=== PATIENT | female | born 1990 | race Caucasian/White ===

== ENCOUNTER 2019-07-21 11:37 | Emergency (ER) | payer MEDICAID ==
[~2019-07-21] VITALS: Ht 154.9 cm; Wt 89.8 kg
[2019-07-21 11:58] VITALS: BP 110/58
--- NOTE | 2019-07-21 12:03 | NUR ---
Vital Signs Stable. [email or web address]. Awaiting for bed availability.
--- NOTE | 2019-07-21 12:14 | NUR ---
PT TO ER BED 8
--- NOTE | 2019-07-21 12:18 | NUR ---
29 Y/O FEMALE REFERRED FROM DR MARIO DUE TO DEHYDRATION. DR MARIO TOLD PT SHE NEED IV FLUIDS AND LABS DRAWN. STATES 5 HEADACHE AT THIS TIME. 10 WKS PER PT. STATES LMP 05/06/19. DENIES FEVER, N/V/D. NO ABD CRAMPING, BLEEDING, NOR DISCHARGE. RR EVEN AND UNLABORED. SITTING UPRIGHT CALM AND PLEASANT. X 1 SIDE RAIL RAISED. BED LOCKED AND IN LOW POSITION. VSS MEDHX: DENIES ALLERGIES: NKA
[2019-07-21] MEDS ORDERED: NACL 0.9% 1,000 ML IV ONE (12:45)
[2019-07-21 13:04] LABS: BASOPHILS # (AUTO) 0.1 K/uL (0.00-0.22); BASOPHILS % (AUTO) 0.6 % (0.0-2.0); EOSINOPHILS # (AUTO) 0.1 K/uL (0-0.4); EOSINOPHILS % (AUTO) 0.9 % (0.0-4.0); HEMATOCRIT 36.3 % (36-48); LYMPHOCYTES # (AUTO) 2.2 K/uL (2.5-16.5); LYMPHOCYTES % (AUTO) 17.9 % (20.5-51.1); MEAN CORPUSCULAR HEMOGLOBIN 29 pg (27-31); MEAN CORPUSCULAR HGB CONC 33 g/dL (33-37); MEAN CORPUSCULAR VOLUME 87.6 fL (80-94); MONOCYTES # (AUTO) 0.8 K/uL (0.8-1.0); MONOCYTES % (AUTO) 6.5 % (1.7-9.3); NEUTROPHILS # (AUTO) 9.1 K/uL (1.8-7.7); NEUTROPHILS % (AUTO) 74.1 % (42.2-75.2); PLATELET COUNT (AUTO) 288 K/uL (140-450); RED BLOOD CELL COUNT(AUTO) 4.14 MIL/uL (4.20-5.40); RED CELL DISTRIBUTION WIDTH 13.6 % (11.6-13.7); WHITE BLOOD COUNT (AUTO) 12.3 K/uL (4.8-10.8)
[2019-07-21 13:21] LABS: ALBUMIN 3.1 g/dL (3.4-5.0); ANION GAP 15.8 (8-16); CARBON DIOXIDE 23.9 mmol/L (21-32); CREATININE 0.5 mg/dL (0.6-1.3); POTASSIUM 3.7 mmol/L (3.5-5.1); TOTAL BILIRUBIN 0.1 mg/dL (0.0-1.0)
[2019-07-21 13:21] LABS: BILIRUBIN,URINE NEGATIVE (NEGATIVE); BLOOD, URINE NEGATIVE (NEGATIVE); COLOR,URINE YELLOW (YELLOW); LEUKOCYTE ESTERASE ,URINE 1+ (NEGATIVE); NITRITE, URINE NEGATIVE (NEGATIVE); UGLUCOSE NEGATIVE (NEGATIVE)
[2019-07-21 13:32] LABS: APPEARANCE,URINE SLIGHTLY HAZY (CLEAR); RBC,URINE 0-5 /HPF (0-5); WBC,URINE 0-5 /HPF (0-5)
--- NOTE | 2019-07-21 13:47 | NUR ---
denies headache at this time. pt sitting upright awake and alert. x 1 side rail raised, bed locked and in low position. vss. will continue to monitor
--- NOTE | 2019-07-21 14:35 | NUR ---
PT AMBULATED TO RESTROOM WITH STEADY GAIT
[2019-07-21 15:06] VITALS: BP 110/58
--- NOTE | 2019-07-21 15:08 | NUR ---
Patient discharged with v/s stable. Written and verbal after care instructions given and explained. Patient verbalized understanding. Ambulatory with steady gait. All questions addressed prior to discharge. Advised to follow up with PMD.
== END 2019-07-21 15:08 | disposition home or self-care (01) ==
LOC: MED 11:37
DX: O99.281 Endocrine, nutritional and metabolic diseases complicating pregnancy, first trimester (principal); O21.8 Other vomiting complicating pregnancy; E86.0 Dehydration; Z3A.10 10 weeks gestation of pregnancy
CPT/HCPCS: 36415; 80053; 81001; 81025; 85025; 87086; 96360; 99283; J7030

== ENCOUNTER 2019-12-08 06:38 | Inpatient (IN) | payer MEDICAID, SELFPAY ==
[~2019-12-08] VITALS: Ht 154.9 cm; Wt 97.1 kg
[2019-12-08 08:18] VITALS: BP 124/75
--- NOTE | 2019-12-08 08:24 | NUR ---
PATIENT HAS BEEN SCREENED AND CATEGORIZED LOW NUTRITION RISK. PATIENT WILL BE SEEN WITHIN 7 DAYS OF ADMISSION. 12/14/[address]
[2019-12-08] MEDS ORDERED: LACTATED RINGERS 1,000 ML IV SCH (08:30)
[2019-12-08] MEDS ORDERED: MORPHINE SULFATE 4 MG/ML SYR IVP PRN (08:30)
[2019-12-08] MEDS ORDERED: BETAMETH ACET/BETAMETH NA PH 30 MG/5 ML VIAL IM SCH (08:30)
[2019-12-08] MEDS ORDERED: ONDANSETRON 4 MG/2 ML VIAL IVP PRN (08:30)
[2019-12-08 09:14] LABS: BILIRUBIN,URINE NEGATIVE (NEGATIVE); BLOOD, URINE NEGATIVE (NEGATIVE); COLOR,URINE YELLOW (YELLOW); LEUKOCYTE ESTERASE ,URINE 1+ (NEGATIVE); NITRITE, URINE NEGATIVE (NEGATIVE); PH,URINE 5.5 (5.0-9.0); UGLUCOSE NEGATIVE (NEGATIVE)
[2019-12-08 09:24] LABS: BASOPHILS % (AUTO) 0.3 % (0.0-2.0); EOSINOPHILS # (AUTO) 0.1 K/uL (0-0.4); EOSINOPHILS % (AUTO) 1.2 % (0.0-4.0); HEMATOCRIT 34.5 % (36-48); HEMOGLOBIN 11.2 g/dL (12.0-16.0); LYMPHOCYTES # (AUTO) 1.6 K/uL (2.5-16.5); LYMPHOCYTES % (AUTO) 15.2 % (20.5-51.1); MEAN CORPUSCULAR HEMOGLOBIN 29 pg (27-31); MEAN CORPUSCULAR HGB CONC 32 g/dL (33-37); MEAN CORPUSCULAR VOLUME 89.7 fL (80-94); MONOCYTES # (AUTO) 0.8 K/uL (0.8-1.0); MONOCYTES % (AUTO) 7.2 % (1.7-9.3); NEUTROPHILS # (AUTO) 8.3 K/uL (1.8-7.7); NEUTROPHILS % (AUTO) 76.1 % (42.2-75.2); PLATELET COUNT (AUTO) 251 K/uL (140-450); RED BLOOD CELL COUNT(AUTO) 3.85 MIL/uL (4.20-5.40); RED CELL DISTRIBUTION WIDTH 14.5 % (11.6-13.7); WHITE BLOOD COUNT (AUTO) 10.9 K/uL (4.8-10.8)
[2019-12-08 09:33] LABS: ALBUMIN 2.6 g/dL (3.4-5.0); ANION GAP 15.1 (8-16); CARBON DIOXIDE 23.8 mmol/L (21-32); CREATININE 0.6 mg/dL (0.6-1.3); POTASSIUM 3.9 mmol/L (3.5-5.1); TOTAL BILIRUBIN 0.1 mg/dL (0.0-1.0)
[2019-12-08 10:16] LABS: APPEARANCE,URINE HAZY (CLEAR)
[2019-12-08 10:17] LABS: RBC,URINE 0-5 /HPF (0-5)
[2019-12-08 10:18] LABS: WBC,URINE 0-5 /HPF (0-5)
[2019-12-08] MEDS ORDERED: cefTRIAXone 1,000 MG VIAL ONE (13:29)
[2019-12-09] MEDS ORDERED: PNV91TAB10 PO (13:49)
== END 2019-12-09 01:40 | disposition home or self-care (01) | DRG 563 ==
LOC: MLD 06:38 → OBSVTOIN 09:51 → MFCC 10:02
PROVIDERS: ADMIT Obstetrics & Gynecology; ATTEND Obstetrics & Gynecology
DX: O60.03 Preterm labor without delivery, third trimester (principal); Z20.828 Contact with and (suspected) exposure to other viral communicable diseases; Z3A.32 32 weeks gestation of pregnancy
CPT/HCPCS: G0378 ×3; 36415; 76817; 80053; 81001; 85025; 86886; 86900; 86901; 87086; J0696; J0702; J7060; J7120; Q0092; U0003-CS

== ENCOUNTER 2019-12-09 12:57 | Observation (INO) | payer MEDICAID, SELFPAY ==
[~2019-12-09] VITALS: Ht 154.9 cm; Wt 97.1 kg
[2019-12-09] MEDS ORDERED: BETAMETH ACET/BETAMETH NA PH 30 MG/5 ML VIAL IM SCH (13:10)
[2019-12-09] MEDS ORDERED: PNV91TAB10 PO (13:49)
== END 2019-12-09 14:30 | disposition home or self-care (01) ==
LOC: MLD 12:57
PROVIDERS: ADMIT Obstetrics & Gynecology; ATTEND Obstetrics & Gynecology
DX: O62.9 Abnormality of forces of labor, unspecified (principal); Z3A.32 32 weeks gestation of pregnancy
CPT/HCPCS: 81000; 96372; G0378; J0702

== ENCOUNTER 2020-01-11 15:50 | Observation (INO) | payer MEDICAID, SELFPAY ==
[~2020-01-11] VITALS: Ht 154.9 cm; Wt 101.6 kg
[~2020-01-11 15:50] MED LIST: PNV91TAB10 PO
[2020-01-11] MEDS ORDERED: OSC500 PO (16:44)
== END 2020-01-11 19:05 | disposition home or self-care (01) ==
LOC: MLD 15:50
PROVIDERS: ADMIT Obstetrics & Gynecology; ATTEND Obstetrics & Gynecology
DX: O62.9 Abnormality of forces of labor, unspecified (principal); O26.893 Other specified pregnancy related conditions, third trimester; R82.998 Other abnormal findings in urine; R60.0 Localized edema; Z3A.37 37 weeks gestation of pregnancy
CPT/HCPCS: 81000; G0378

== ENCOUNTER 2020-01-21 22:09 | Inpatient (IN) | payer MEDICAID, SELFPAY ==
[~2020-01-21] VITALS: Ht 154.9 cm; Wt 99.8 kg
[~2020-01-21 22:09] MED LIST changes: +OSC500 PO
[2020-01-21] MEDS ORDERED: MORPHINE SULFATE 5 MG/ML VIAL IVP PRN (22:50)
[2020-01-21] MEDS ORDERED: OXYTOCIN 20 UNITS in LACTATED RINGERS 1,000 ML IV SCH (22:50)
[2020-01-21] MEDS ORDERED: ONDANSETRON 4 MG/2 ML VIAL IVP PRN (22:50)
[2020-01-21] MEDS ORDERED: METHYLERGONOVINE 0.2 MG/ML AMP IM PRN (22:50)
[2020-01-21] MEDS ORDERED: MISOPROSTOL 25 MCG TAB VG PRN (22:50)
[2020-01-21] MEDS: LACTATED RINGERS 1,000 ML IV SCH (23:45)
[2020-01-22 00:02] LABS: BASOPHILS # (AUTO) 0.1 K/uL (0.00-0.22); BASOPHILS % (AUTO) 0.9 % (0.0-2.0); EOSINOPHILS # (AUTO) 0.1 K/uL (0-0.4); EOSINOPHILS % (AUTO) 0.9 % (0.0-4.0); HEMATOCRIT 34.8 % (36-48); HEMOGLOBIN 11.2 g/dL (12.0-16.0); LYMPHOCYTES # (AUTO) 2.2 K/uL (2.5-16.5); MEAN CORPUSCULAR HEMOGLOBIN 29 pg (27-31); MEAN CORPUSCULAR HGB CONC 32 g/dL (33-37); MEAN CORPUSCULAR VOLUME 88.5 fL (80-94); MONOCYTES # (AUTO) 1.1 K/uL (0.8-1.0); MONOCYTES % (AUTO) 9.7 % (1.7-9.3); NEUTROPHILS # (AUTO) 7.9 K/uL (1.8-7.7); NEUTROPHILS % (AUTO) 69.5 % (42.2-75.2); PLATELET COUNT (AUTO) 242 K/uL (140-450); RED BLOOD CELL COUNT(AUTO) 3.93 MIL/uL (4.20-5.40); RED CELL DISTRIBUTION WIDTH 15.6 % (11.6-13.7); WHITE BLOOD COUNT (AUTO) 11.3 K/uL (4.8-10.8)
[2020-01-22] MEDS: diphenhydrAMINE 50 MG/ML VIAL IVP PRN ×2 (00:04→06:43)
[2020-01-22 00:26] VITALS: BP 130/60
[2020-01-22 00:35] LABS: APPEARANCE,URINE SL CLOUDY (CLEAR); BILIRUBIN,URINE NEGATIVE (NEGATIVE); BLOOD, URINE NEGATIVE (NEGATIVE); COLOR,URINE YELLOW (YELLOW); LEUKOCYTE ESTERASE ,URINE 1+ (NEGATIVE); NITRITE, URINE NEGATIVE (NEGATIVE); UGLUCOSE NEGATIVE (NEGATIVE)
[2020-01-22 00:46] LABS: ALBUMIN 2.6 g/dL (3.4-5.0); ANION GAP 14.2 (8-16); CARBON DIOXIDE 24.3 mmol/L (21-32); CREATININE 0.8 mg/dL (0.6-1.3); POTASSIUM 3.5 mmol/L (3.5-5.1); TOTAL BILIRUBIN 0.2 mg/dL (0.0-1.0)
[2020-01-22 01:16] LABS: RBC,URINE 0-5 /HPF (0-5)
--- NOTE | 2020-01-22 06:32 | NUR ---
PATIENT HAS BEEN SCREENED AND CATEGORIZED LOW NUTRITION RISK. PATIENT WILL BE SEEN WITHIN 7 DAYS OF ADMISSION. 01/29/20 FABIÁN MARTINEZ MS, RDN
[2020-01-22] MEDS: LACTATED RINGERS 1,000 ML IV SCH ×2 (07:37→15:40)
[2020-01-22] MEDS ORDERED: OXYTOCIN 20 UNITS/LR PREMIX 1,000 ML IV ONE (09:10)
[2020-01-22] MEDS ORDERED: PROMETHAZINE 25 MG/ML VIAL ONE (15:39)
[2020-01-22] MEDS ORDERED: PROMETHAZINE 25 MG/ML VIAL IVP SCH (15:45)
[2020-01-22] MEDS: MORPHINE SULFATE 10 MG/ML VIAL ONE ×2 (15:57→19:34)
[2020-01-22] MEDS ORDERED: MORPHINE SULFATE 10 MG/ML VIAL ONE (19:27)
[2020-01-22 19:35] VITALS: BP 133/60
[2020-01-22] MEDS ORDERED: LIDOCAINE 1% 500 MG/50 ML VIAL ONE (20:30)
[2020-01-22] MEDS ORDERED: METHYLERGONOVINE 0.2 MG TAB PO PRN (20:55)
[2020-01-22] MEDS ORDERED: METHYLERGONOVINE 0.2 MG/ML AMP IM PRN (20:55)
[2020-01-22] MEDS ORDERED: BENZOCAINE/MENTHOL 20%-0.5% 60 GM CAN TP PRN (20:55)
[2020-01-22] MEDS ORDERED: IBUPROFEN 800 MG TAB PO PRN (20:55)
[2020-01-22] MEDS ORDERED: DOCUSATE SODIUM 100 MG GELCAP PO PRN (20:55)
[2020-01-22] MEDS ORDERED: bisacodyL 5 MG TABEC PO PRN (20:55)
[2020-01-22] MEDS ORDERED: OXYTOCIN 10 UNITS/ML VIAL IM PRN (20:55)
[2020-01-22] MEDS ORDERED: SIMETHICONE 80 MG TAB.CHEW PO PRN (20:55)
[2020-01-22] MEDS ORDERED: MEASLES, MUMPS, AND RUBELLA 1 VIAL SQVAC PRN (20:55)
[2020-01-22] MEDS ORDERED: IBUPROFEN 600 MG TAB PO PRN ×2 (20:55)
[2020-01-23 09:18] LABS: HEMATOCRIT 24.5 % (36-48); HEMOGLOBIN 7.9 g/dL (12.0-16.0)
[2020-01-23] MEDS: FERROUS SULFATE 325 MG TABEC PO SCH ×2 (12:04→16:57)
[2020-01-24 07:57] LABS: BASOPHILS % (AUTO) 0.4 % (0.0-2.0); EOSINOPHILS # (AUTO) 0.2 K/uL (0-0.4); EOSINOPHILS % (AUTO) 1.7 % (0.0-4.0); HEMOGLOBIN 7.8 g/dL (12.0-16.0); LYMPHOCYTES % (AUTO) 19.1 % (20.5-51.1); MEAN CORPUSCULAR HEMOGLOBIN 29 pg (27-31); MEAN CORPUSCULAR HGB CONC 33 g/dL (33-37); MEAN CORPUSCULAR VOLUME 87.9 fL (80-94); MONOCYTES # (AUTO) 0.8 K/uL (0.8-1.0); MONOCYTES % (AUTO) 7.4 % (1.7-9.3); NEUTROPHILS # (AUTO) 7.6 K/uL (1.8-7.7); NEUTROPHILS % (AUTO) 71.4 % (42.2-75.2); PLATELET COUNT (AUTO) 174 K/uL (140-450); RED BLOOD CELL COUNT(AUTO) 2.73 MIL/uL (4.20-5.40); RED CELL DISTRIBUTION WIDTH 15.9 % (11.6-13.7); WHITE BLOOD COUNT (AUTO) 10.7 K/uL (4.8-10.8)
[2020-01-24] MEDS: FERROUS SULFATE 325 MG TABEC PO SCH (08:19)
== END 2020-01-24 13:35 | disposition home or self-care (01) | DRG 560 ==
LOC: MLD 22:09 → MFCC 01-22 22:35
PROVIDERS: ADMIT Obstetrics & Gynecology; ATTEND Obstetrics & Gynecology
PROC: 0KQM0ZZ Repair Perineum Muscle, Open Approach (ICD-10-PCS; principal; 2020-01-22)
PROC: 10E0XZZ Delivery of Products of Conception, External Approach (ICD-10-PCS; 2020-01-22)
PROC: 10907ZC Drainage of Amniotic Fluid, Therapeutic from Products of Conception, Via Natural or Artificial Opening (ICD-10-PCS; 2020-01-22)
PROC: 3E0P7VZ Introduction of Hormone into Female Reproductive, Via Natural or Artificial Opening (ICD-10-PCS; 2020-01-22)
DX: O70.1 Second degree perineal laceration during delivery (principal); O69.81X0 Labor and delivery complicated by cord around neck, without compression, not applicable or unspecified; D62 Acute posthemorrhagic anemia; O75.3 Other infection during labor; Z37.0 Single live birth; Z3A.38 38 weeks gestation of pregnancy; O90.81 Anemia of the puerperium
CPT/HCPCS: 36415; 59200; 59409; 76815; 80053; 81001; 85018; 85025; 86592; 86886; 86900; 86901; 87086; 87186; J0696; J1200; J2001; J2270; J2550; J2590; J7060; J7120; Q0092

== ENCOUNTER 2020-03-07 11:27 | Outpatient (CLI) | payer MEDICAID, SELFPAY | END 2020-03-07 23:59 | disposition home or self-care (01) | LOC: MLB 11:27 → EDSTATUS 03-13 07:30 | PROVIDERS: ATTEND Obstetrics & Gynecology | DX: Z01.812 Encounter for preprocedural laboratory examination (principal); Z20.828 Contact with and (suspected) exposure to other viral communicable diseases | CPT/HCPCS: U0003-CS ==